=== PATIENT | female | born 1975 | race Caucasian/White ===

== ENCOUNTER 2022-01-22 20:26 | Emergency (ER) | payer BC ==
[~2022-01-22] VITALS: Ht 172.7 cm; Wt 154.2 kg
[2022-01-22 20:55] VITALS: BP 134/77
--- NOTE | 2022-01-22 21:20 | NUR ---
SEEN AND AND EXAMINED BY MAURICE
[2022-01-22] MEDS ORDERED: LIDOCAINE MPF 1% 5 ML ONE ×3 (21:43→21:46)
[2022-01-22] MEDS ORDERED: NAPR-54 PO (22:02)
[2022-01-22] MEDS ORDERED: AMOX-1230 PO (22:02)
--- NOTE | 2022-01-22 22:10 | NUR ---
Patient discharged with v/s stable BY , Written and verbal after care instructions given and explained. Patient verbalized understanding. Ambulatory with steady gait. All questions addressed prior to discharge. Advised to follow up with PMD.
== END 2022-01-22 22:10 | disposition home or self-care (01) ==
LOC: MED 20:26
DX: S91.051A Open bite, right ankle, initial encounter (principal); Z79.899 Other long term (current) drug therapy; W54.0XXA Bitten by dog, initial encounter; Y93.89 Activity, other specified; Y92.89 Other specified places as the place of occurrence of the external cause; Y99.8 Other external cause status
CPT/HCPCS: 90471; 90715; 99283; J2001